=== PATIENT | female | born 1960 | race Caucasian/White ===

== ENCOUNTER 2017-03-10 22:53 | Observation (INO) ==
[2017-03-10] MEDS ORDERED: ASPIRIN PO STA (23:34)
[2017-03-10] MEDS ORDERED: NS 1,000 ML IV ONE (23:36)
[2017-03-11 00:13] LABS: MANUAL DIFF NEEDED? NO
[2017-03-11 00:18] LABS: BASO% 0.4 % (0.0-0.8); EOS# 0.03 X1000 (0.0-0.7); EOS% 0.3 % (0.0-10.0); HEMATOCRIT 40.4 % (37.0-47.0); HEMOGLOBIN 14.2 g/dL (12.0-16.0); IMM GRAN# 0.01 X1000 (0.0-0.04); IMM GRAN% 0.1 % (0.0-0.5); LYMPH# 3.08 X1000 (1.2-3.4); LYMPH% 30.5 % (20.5-51.1); MCH 32.3 PG (27-31); MCHC 35.1 g/dL (33-37); MONO# 0.86 X1000 (0.11-0.59); MONO% 8.5 % (1.7-9.3); MPV 10.7 FL (7.4-10.4); NEUT% 60.2 % (42.2-75.2); PLT 242 X1000 (130-400); RBC 4.39 XMIL (4.2-5.4)
[2017-03-11 00:39] LABS: AGAP 15; ALBUMIN 4.3 g/dL (3.5-5.0); ALKALINE PHOSPHATASE 66 U/L (32-104); BUN 9 mg/dL (8-22); CALCIUM 9.1 mg/dL (8.8-10.2); CHLORIDE 91 mmol/L (98-107); COSMO 254; GOT 25 U/L (10-30); GPT 15 U/L (10-36); POTASSIUM 3.8 mmol/L (3.5-5.1); SODIUM 128 mmol/L (136-145); TCO2 23 mmol/L (25-35); TOTAL PROTEIN 6.8 g/dL (6.3-8.3)
[2017-03-11 00:43] LABS: CK PROFILE 239 U/L (24-173)
[2017-03-11 00:46] LABS: AMYLASE 22 U/L (20-200); LIPASE 37 U/L (13-60)
--- NOTE | 2017-03-11 01:00 | EKG Report ---
Test Performed on : 03/11/2017 00:30:59 AM Test Reason : CHEST PAIN Blood Pressure : / mmHG Vent. Rate : 058 BPM Atrial Rate : 058 BPM P-R Int : 000 ms QRS Dur : 080 ms QT Int : 394 ms P-R-T Axes : 000 073 066 degrees QTc Int : 386 ms Junctional rhythm. Moderate voltage criteria for LVH, may be normal variant Abnormal ECG No previous ECGs available Unconfirmed Result
[2017-03-11 01:17] LABS: INR 0.92 (0.86-1.15); PROTIME 12.7 Seconds (12.1-15.5)
[2017-03-11 01:18] LABS: PTT PL 29.4 Seconds (22.6-43.9)
[2017-03-11 01:22] LABS: CK INDEX 1.6 (0.0-2.5); CK-MB 3.74 ng/mL (0.0-5.0)
[2017-03-11] MEDS ORDERED: ZOFRAN IV PRN (01:44)
[2017-03-11] MEDS ORDERED: NS 1,000 ML IV ONE (01:44)
[2017-03-11] MEDS ORDERED: TYLENOL PO PRN (01:44)
[2017-03-11] MEDS ORDERED: MORPHINE IV PRN ×2 (01:44→11:25)
[2017-03-11] MEDS ORDERED: TORADOL IV PRN (01:44)
[2017-03-11 01:52] LABS: FREE T4 1.17 ng/dL (0.93-1.70)
--- NOTE | 2017-03-11 06:47 | Diag Imaging Result Document ---
PROCEDURE NAME: CHEST-PORTABLE - 03/10/2017 PORTABLE CHEST: COMPARISON: No comparison films. FINDINGS: The lungs are well expanded. The heart is not enlarged. The vessels are not distended. No pneumonia. No pleural effusions identified. IMPRESSION: Negative chest.
[2017-03-11 07:04] LABS: URINE CULTURE PL NEEDED? NO
[2017-03-11 07:38] LABS: UR AMPHETAMINES QUAL NONE DETECTED (NONE DETECT); UR BARBITUATES QUAL NONE DETECTED (NONE DETECT); UR BENZODIAZEPIN QUAL NONE DETECTED (NONE DETECT); UR CANNABINOIDS QUAL NONE DETECTED (NONE DETECT); UR COCAINE QUAL NONE DETECTED (NONE DETECT); UR MDMA QUAL NONE DETECTED (NONE DETECT); UR METHADONE QUAL NONE DETECTED (NONE DETECT); UR METHAMPHETAMINE QUAL NONE DETECTED (NONE DETECT); UR OPIATES QUAL NONE DETECTED (NONE DETECT); UR OXYCODONE QUAL NONE DETECTED (NONE DETECT); UR PCP QUAL NONE DETECTED (NONE DETECT); UR TCA QUAL NONE DETECTED (NONE DETECT)
[2017-03-11 07:54] LABS: BILIRUBIN URINE NEGATIVE (NEGATIVE); BLOOD URINE NEGATIVE (NEGATIVE); CLARITY CLEAR (CLEAR); COLOR YELLOW; GLUCOSE URINE NEGATIVE (NEGATIVE); LEUKOCYTES URINE NEGATIVE (NEGATIVE); NITRITE URINE NEGATIVE (NEGATIVE); PROTEIN URINE NEGATIVE (NEGATIVE); SP GRAVITY URINE 1.005; UROBILINOGEN URINE NORMAL
[2017-03-11 07:59] LABS: URINE SOURCE CLEAN CATCH
[2017-03-11] MEDS ORDERED: FLUZONE QUAD 2016-2017 SYRINGE IM ONE (09:00)
[2017-03-11 10:46] VITALS: BP 100/54
[2017-03-11] MEDS ORDERED: ZANTAC PO SCH (11:00)
[2017-03-11] MEDS ORDERED: SINGULAIR PO SCH (11:00)
[2017-03-11 11:06] LABS: MANUAL DIFF NEEDED? NO
[2017-03-11 11:08] LABS: BASO% 0.2 % (0.0-0.8); EOS# 0.02 X1000 (0.0-0.7); EOS% 0.3 % (0.0-10.0); HEMATOCRIT 37.4 % (37.0-47.0); HEMOGLOBIN 12.9 g/dL (12.0-16.0); IMM GRAN# 0.01 X1000 (0.0-0.04); IMM GRAN% 0.2 % (0.0-0.5); LYMPH# 2.11 X1000 (1.2-3.4); LYMPH% 32.7 % (20.5-51.1); MCH 32.4 PG (27-31); MCHC 34.5 g/dL (33-37); MONO# 0.38 X1000 (0.11-0.59); MONO% 5.9 % (1.7-9.3); MPV 11.7 FL (7.4-10.4); NEUT% 60.7 % (42.2-75.2); PLT 214 X1000 (130-400); RBC 3.98 XMIL (4.2-5.4)
[2017-03-11 11:18] LABS: AGAP 11; BUN 7 mg/dL (8-22); CALCIUM 8.5 mg/dL (8.8-10.2); CHLORIDE 100 mmol/L (98-107); COSMO 265; POTASSIUM 4.5 mmol/L (3.5-5.1); SODIUM 133 mmol/L (136-145); TCO2 22 mmol/L (25-35)
--- NOTE | 2017-03-11 11:43 | HISTORY AND PHYSICAL ---
PRIMARY CARE PHYSICIAN: Dr. Raman Jeffers. CHIEF COMPLAINT: Shortness of breath and feeling jittery after she took 5 packets of energy drink and a diet pill. HISTORY OF PRESENTING ILLNESS: This is a 56-year-old female who presented to [facility] ER with complaints of feeling short of breath and jittery. States that she had been working out in her yard yesterday and walked 6 miles and took 5 separate packets of energy drinks and took a diet pill. She denied any chest pain. When she arrived, she had a heart rate of 87, blood pressure was stable at 121/75, and she was saturating 100% on room air. Laboratory data was pretty much negative except for a sodium level of 128 with a chloride of 91. She was admitted to the medical unit for further evaluation and treatment. PAST MEDICAL HISTORY: None. PAST SURGICAL HISTORY: Partial hysterectomy. FAMILY HISTORY: Noncontributory. SOCIAL HISTORY: She currently lives with family. Denies any tobacco use stating she quit 6 months ago and denies any alcohol or illicit drug use. ALLERGIES: She has no known drug allergies. HOME MEDICATIONS: She takes Singulair 10 mg p.o. daily and Zantac 150 mg p.o. daily. LABORATORY DATA: Showed a white blood cell count of 10.10, a hemoglobin of 14.2, hematocrit 40.4, platelets 242,000. PT and INR of 12.7 and 0.92 with a D-dimer of 0.29. Sodium of 128, potassium 3.8, chloride 91, CO2 23, BUN of 9, creatinine 0.8, glucose 72, magnesium of 2. Creatine kinase was 239 with a CK-MB of 3.74 with a negative troponin x2 sets. Amylase of 22, lipase 37 vitamin B12 of 1600. TSH of 3.64 with a free T4 of 1.17. Urinalysis was negative. Urine drug screen was negative. Serum alcohol level showed none detected. Chest x-ray was negative. EKG, junctional rhythm at 58. REVIEW OF SYSTEMS: She was positive for feeling jittery and short of breath. Denied any fever, chills, blurred vision, dizziness, chest pain, abdominal pain, constipation, diarrhea, burning or hurting with urination. PHYSICAL EXAMINATION: VITAL SIGNS: On arrival, she had a temperature of 98.2 degrees, pulse 87, respirations 18, blood pressure 121/75, saturating 100% on room air. GENERAL: This is a 56-year-old female who is lying in the bed, and answers all questions appropriately. HEENT: Normocephalic and atraumatic. Pupils are equal, round, reactive to light. Extraocular movements are intact. Oropharynx and nares are clear. NECK: Supple. LUNGS: Clear to auscultation bilaterally with equal lung expansion and chest wall movement. HEART: Regular rate and rhythm. No murmurs, rubs, or gallops. ABDOMEN: Soft, nontender, nondistended. Bowel sounds are present x4 quadrants. EXTREMITIES: No clubbing, cyanosis, or edema. NEUROLOGICAL: The cranial nerves 2-12 are grossly intact. ASSESSMENT: 1. Dyspnea. 2. Hyponatremia. 3. History of tobacco abuse. PLAN: She was admitted to the medical unit at [facility], placed on telemetry, and we monitored her cardiac enzymes and all have been negative and gave her normal saline 1000 mL bolus then at 150 mL x1 bag. Continued her home medications. We will recheck a BMP this a.m. to ensure that her sodium level has improved. This is most likely related to taking too many of the energy drink packets and the diet pill combination. Discussed this with the patient at length who verbalized understanding. Dictated by SHAHZAD Oreilly for Min Pillai MD cc: MD Bette Monroe CRNP Omar J. Sosa-Chirinos, MD Raphael K. Quansah, MD
--- NOTE | 2017-03-11 16:31 | DISCHARGE SUMMARY ---
ADMISSION DATE: 03/10/2017 DISCHARGE DATE: 03/11/2017 PRIMARY CARE PHYSICIAN: Raman Jeffers MD. ADMISSION DIAGNOSES: 1. Dyspnea. 2. Hyponatremia. 3. History of tobacco abuse. SUMMARY OF FINDINGS: This is a 56-year-old female who presented to [facility] ER with complaints of feeling short of breath and jittery after she states that she had been working out in her yard yesterday, had walked 6 miles, and took 5 separate packages of energy drinks and a diet pill. Her laboratory data was essentially negative except she did have a sodium of 128. We did monitor her cardiac enzymes which have been negative. She was given a normal saline 1000 mL bolus in the ER and then a separate bag at 150 mL an hour. We rechecked her sodium, it is up to 133. We discussed with her the importance of monitoring how much of the energy drink she consumes in a day along with her diet pills and to make sure that she stays hydrated. She verbalizes understanding and it is felt that she can safely be discharged home. DISCHARGE MEDICATIONS: Home medications of Singulair 10 mg p.o. daily and Zantac 150 mg p.o. daily. FOLLOWUP: She will need to follow up with her primary care physician, Dr. Raman Jeffers, in 1-2 weeks. DISCHARGE TIME: 35 minutes. Dictated by SHAHZAD Oreilly for Min Pillai MD cc: SHAHZAD Oreilly MD Raphael K. Quansah, MD Brian R. James, MD
== END 2017-03-11 12:45 | disposition home or self-care (01) ==
LOC: P.ED 22:53 → P.MEDSURG 03-11 02:33 → INTOOBSV 03-11 02:33 → SUATTDRO 03-11 02:33
PROVIDERS: ADMIT Internal Medicine; ATTEND Internal Medicine